=== PATIENT | male | born 1985 | race Caucasian/White ===

== ENCOUNTER 2017-08-08 12:42 | Emergency (ER) | payer BC ==
[2017-08-08 12:52] VITALS: TEMP 98.6
[2017-08-08 14:13] LABS: BASO # 0.1 K/uL (0.0-0.2); BASO % 0.8 % (0.0-2.0); EOS # 0.1 K/uL (0.0-0.7); EOS % 1.3 % (0.0-4.0); LYMPH # 1.9 K/uL (1.0-4.3); LYMPH % 19.6 % (20.0-40.0); MEAN CELL VOLUME 81.5 fL (80.0-94.0); MEAN CORPUSCULAR HEMOGLOBIN 28.9 pg (27.0-31.0); MEAN CORPUSCULAR HGB CONC 35.4 g/dL (33.0-37.0); MEAN PLATELET VOLUME 7.9 fL (7.2-11.7); MONO # 0.6 K/uL (0.0-0.8); MONO % 6.4 % (0.0-10.0); NEUT # 7.1 K/uL (1.8-7.0); NEUT % 71.9 % (50.0-75.0); NRBC % 0.2 % (0.0-2.0); RBC 5.56 Mil/uL (4.40-5.90); RED CELL DISTRIBUTION WIDTH 12.6 % (11.5-14.5); WHITE BLOOD COUNT 9.9 K/uL (4.8-10.8)
[2017-08-08 14:17] LABS: ALBUMIN 4.5 g/dL (3.5-5.0); BLOOD UREA NITROGEN 17 mg/dL (9-20); CALCIUM 9.3 mg/dl (8.6-10.4); GFR AFRICAN-AMERICAN > 60; GFR NON-AFRICAN AMERICAN > 60
[2017-08-08 14:18] LABS: ALB/GLOB RATIO 1.3 (1.0-2.1); ALT/SGPT 29 U/L (21-72); AST/SGOT 24 U/L (17-59)
--- NOTE | 2017-08-08 14:40 | RAD ---
PROCEDURE: CHEST RADIOGRAPH, 1 VIEW HISTORY: chest pain COMPARISON: None available. FINDINGS: LUNGS: Clear. PLEURA: No pneumothorax or pleural fluid seen. CARDIOVASCULAR: Normal. OSSEOUS STRUCTURES: No significant abnormalities. VISUALIZED UPPER ABDOMEN: Normal. OTHER FINDINGS: None. IMPRESSION: No active disease.
[2017-08-08 14:53] VITALS: BP 116/83; PULSE 71; RESP 18; O2SAT 98
--- NOTE | 2017-08-08 16:09 | C.PDOC ---
History Of Present Illness 31 year old male, with PMHx of gastritis, presents to ED for evaluation of sharp substernal chest pain and epigastric abdominal pain since this morning. Denies shortness of breath, cough, n/v/d, or fever. Pt had recent chest CT report which showed no acute pathology. Chief Complaint (Nursing): Chest Pain History Per: Patient History/Exam Limitations: no limitations Onset/Duration Of Symptoms: Hrs Current Symptoms Are (Timing): Still Present Quality: Sharp Associated Symptoms: denies: Nausea, Dyspnea, Diaphoresis, Syncope Modifying Factors: None Exacerbating Factors: None Alleviating Factors: None Past Medical History Reviewed: Historical Data, Nursing Documentation, Vital Signs Vital Signs: Last Vital Signs Temp 98.6 F 08/08/17 12:49 Pulse 71 08/08/17 14:52 Resp 18 08/08/17 14:52 BP 116/83 08/08/17 14:52 Pulse Ox 98 08/08/17 16:13 - Medical History PMH: HTN Family History: States: Unknown Family Hx - Social History Hx Alcohol Use: No Hx Substance Use: No - Immunization History Hx Tetanus Toxoid Vaccination: No Hx Influenza Vaccination: No Hx Pneumococcal Vaccination: No Review Of Systems Except As Marked, All Systems Reviewed And Found Negative. Constitutional: Negative for: Fever, Chills Cardiovascular: Positive for: Chest Pain. Negative for: Palpitations, Light Headedness Respiratory: Negative for: Cough, Shortness of Breath Gastrointestinal: Positive for: Abdominal Pain. Negative for: Nausea, Vomiting , Diarrhea, Constipation Musculoskeletal: Negative for: Back Pain Physical Exam - Physical Exam Appears: Non-toxic, No Acute Distress Skin: Normal Color, Warm, Dry Head: Atraumatic, Normacephalic Eye(s): bilateral: Normal Inspection Oral Mucosa: Moist Cardiovascular: Rhythm Regular, No Murmur Respiratory: Normal Breath Sounds, No Rales, No Rhonchi, No Wheezing Gastrointestinal/Abdominal: Soft, No Tenderness, No Guarding, No Rebound Extremity: Normal ROM Neurological/Psych: Oriented x3, Normal Speech ED Course And Treatment - Laboratory Results Result Diagrams: 08/08/17 13:56 08/08/17 13:56 ECG: Interpreted By Me, Viewed By Me ECG Rhythm: Sinus Rhythm ECG Interpretation: No Acute Changes Interpretation Of ECG: Normal axis, normal interval Rate From EC (bpm) O2 Sat by Pulse Oximetry: 98 (RA) Pulse Ox Interpretation: Normal Progress Note: Blood work, CXR, EKG was ordered and reviewed. Disposition - Disposition Referrals: Ailyn Cordero, [Non-Staff] - Disposition: HOME/ ROUTINE Disposition Time: 14:45 Condition: GOOD Additional Instructions: Thank you for letting us take care of you today. The emergency medical care you received today was directed at your acute symptoms. If you were prescribed any medication, please fill it and take as directed. It may take several days for your symptoms to resolve. Return to the Emergency Department if your symptoms worsen, do not improve, or if you have any other problems. Please contact your doctor or call one of the physicians/clinics you have been referred to that are listed on the Patient Visit Information form that is included in your discharge packet. Bring any paperwork you were given at discharge with you along with any medications you are taking to your follow up visit. Our treatment cannot replace ongoing medical care by a primary care provider (PCP) outside of the emergency department. Thank you for allowing the [facility] team to be part of your care today. Follow up with your primary doctor in 2-3 days for re-evaluation and further management. Prescriptions: Cyclobenzaprine [Cyclobenzaprine HCl] 10 mg PO Q8 PRN #20 tab PRN Reason: Muscle Spasm Esomeprazole Magnesium [Nexium 24Hr] 20 mg PO DAILY #10 capsule. Instructions: Chest Pain That Is Not Caused by the Heart (DC) Forms: [facility] (Georgian) - Clinical Impression Clinical Impression: Chest discomfort - Scribe Statement The provider has reviewed the documentation as recorded by the Marjorieibnorris Alfonso All medical record entries made by the Scribe were at my direction and personally dictated by me. I have reviewed the chart and agree that the record accurately reflects my personal performance of the history, physical exam, medical decision making, and the department course for this patient. I have also personally directed, reviewed, and agree with the discharge instructions and disposition.
--- NOTE | 2017-08-09 23:13 | CARD ---
APPROVED REPORT EKG Measurement Heart [id number] <Conclusion> Normal sinus rhythm Nonspecific T wave abnormality Abnormal ECG
== END 2017-08-08 15:20 | disposition home or self-care (01) ==
LOC: C.ER 12:42
DX: R07.89 Other chest pain (principal); I10 Essential (primary) hypertension

== ENCOUNTER 2017-08-18 07:32 | Day surgery (SDC) | payer BC ==
[2017-08-17 14:10] VITALS: BMI 25.0
[2017-08-18 07:54] VITALS: O2SAT 100
[2017-08-18] MEDS ORDERED: Ketamine HCL 100 mg/ml INJ ONE (08:44)
[2017-08-18] MEDS ORDERED: Lactated Ringer's 1,000 ML IV ONE (09:00)
[2017-08-18] MEDS ORDERED: Propofol 10 mg/ml Inj (20 ML) ONE (09:01)
[2017-08-18] MEDS ORDERED: Lactated Ringer's 500 ML IV SCH (09:15)
[2017-08-18 09:47] VITALS: TEMP 98.5
[2017-08-18 10:11] VITALS: BP 123/89; PULSE 90; RESP 12
== END 2017-08-18 10:45 | disposition home or self-care (01) ==
LOC: C.ENDO 07:32
PROVIDERS: ATTEND Internal Medicine Gastroenterology
DX: K29.40 Chronic atrophic gastritis without bleeding (principal); K62.5 Hemorrhage of anus and rectum
CPT/HCPCS: 43239; 88305; 88313; 88342; J2704; J7120

== ENCOUNTER 2017-08-30 06:27 | Day surgery (SDC) | payer BC ==
[2017-08-17 14:10] VITALS: BMI 25.0
[2017-08-30] MEDS ORDERED: Propofol 10 mg/ml Inj (20 ML) ONE ×3 (07:48→08:03)
--- NOTE | 2017-08-30 07:52 | CP.SDSHP ---
Same Day Surgery H & P - History Proposed Procedure: rectal eus/emr Pre-Op Diagnosis: rectal carcinoid - Allergies Allergies: Allergies No Known Allergies Allergy (Verified 08/17/17 14:10) - Physical Exam General Appearance: nl Vital Signs: Vital Signs 08/30/17 08/30/17 06:45 07:49 Temperature 98. F 98. F Pulse Rate 65 65 Respiratory 19 19 Rate Blood Pressure 120/81 120/81 O2 Sat by Pulse 100 100 Oximetry Mental Status: Alert & Oriented x3 Neuro: WNL Heart: WNL Lungs: WNL GI: WNL - {Optional Preform as Required} Abdomen: WNL - Impression Impression: rectal carcinoid Pt. 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
[2017-08-30] MEDS ORDERED: Lidocaine Hydrochloride 5 ML INJ ONE (08:14)
[2017-08-30 08:44] VITALS: TEMP 98.2
[2017-08-30 09:14] VITALS: O2SAT 100
[2017-08-30 09:49] VITALS: BP 123/82; PULSE 95; RESP 13
== END 2017-08-30 09:45 | disposition home or self-care (01) ==
LOC: C.ENDO 06:27
PROVIDERS: ATTEND Internal Medicine
DX: K62.89 Other specified diseases of anus and rectum (principal); K51.20 Ulcerative (chronic) proctitis without complications
CPT/HCPCS: 45380; 45391; 88305; 88342; J2704

== ENCOUNTER 2017-09-05 22:49 | Inpatient (IN) | payer BC ==
[2017-09-05 22:50] VITALS: BMI 25.0
--- NOTE | 2017-09-05 23:46 | C.PDOC ---
History Of Present Illness 32 year old male presents to the Ed c/o rectal bleeding since 16:00 today. Patient reports that he had 4-5 episodes, patient on 08/30 had done a rectal biopsy and US. Prior to that patient had a colonoscopy done which showed polyps. Patient denies fever, chill, nausea, vomit, weakness, numbness. Time Seen by Provider: 09/05/17 23:46 Chief Complaint (Nursing): GI Problem History Per: Patient History/Exam Limitations: no limitations Onset/Duration Of Symptoms: Days Current Symptoms Are (Timing): Still Present Number Of Bleeding Episodes: Multiple: (4-5) Amount of Blood Loss: Medium Severity: Moderate Pain Scale Rating Of: 4 Quality Of Discomfort: "Pain" Associated Symptoms: Rectal Bleeding Modifying Factors: None Recent travel outside of the [place]: No Additional History Per: Patient Past Medical History Reviewed: Historical Data, Nursing Documentation, Vital Signs Vital Signs: Last Vital Signs Temp 98.8 F 09/05/17 23:08 Pulse 67 09/05/17 23:08 Resp 18 09/05/17 23:08 BP 125/84 09/05/17 23:08 Pulse Ox 100 09/06/17 00:44 - Medical History PMH: HTN Denies: Asthma, Bronchitis, Colonic Polyps, COPD, Fractures, Chronic Kidney Disease, Sleep Apnea, TIA Surgical History: Endoscopy Family History: States: Unknown Family Hx - Social History Hx Alcohol Use: No Hx Substance Use: No - Immunization History Hx Tetanus Toxoid Vaccination: No Hx Influenza Vaccination: No Hx Pneumococcal Vaccination: No Review Of Systems Constitutional: Negative for: Fever, Chills Eyes: Negative for: Redness ENT: Negative for: Throat Pain Cardiovascular: Negative for: Chest Pain Respiratory: Negative for: Shortness of Breath Gastrointestinal: Positive for: Rectal Pain. Negative for: Nausea, Vomiting Genitourinary: Negative for: Dysuria Musculoskeletal: Negative for: Back Pain Skin: Negative for: Rash Neurological: Negative for: Weakness, Numbness Psych: Negative for: Anxiety Physical Exam - Physical Exam Appears: Non-toxic, No Acute Distress Skin: Warm, Dry Head: Normacephalic Eye(s): bilateral: Normal Inspection Oral Mucosa: Moist Neck: Supple Chest: Symmetrical Cardiovascular: Rhythm Regular Respiratory: No Rales, No Rhonchi, No Wheezing Gastrointestinal/Abdominal: Soft, No Tenderness, No Guarding, No Rebound Rectal: No Hemorrhoids, No Mass, Other (blood in the vault. no fisures) Back: Normal Inspection Extremity: No Tenderness, No Swelling Extremity: Bilateral: Atraumatic, Normal Color And Temperature, Normal ROM Neurological/Psych: Oriented x3, Normal Speech Gait: Steady ED Course And Treatment - Laboratory Results Result Diagrams: 09/06/17 00:18 09/06/17 00:18 O2 Sat by Pulse Oximetry: 100 (ON RA) Pulse Ox Interpretation: Normal Progress Note: Plan: - Labs. - protonix IV. - IV fluids. - UA Disposition Discussed With Dr.: Richard Alfonso Counseled Patient/Family Regarding: Studies Performed, Diagnosis - Disposition Referrals: Jose R Alfonso MD [Primary Care Provider] - Disposition: HOSPITALIZED Disposition Time: 23:46 Condition: FAIR Forms: [facility] (Cook Islander) - POA Present On Arrival: None - Clinical Impression Clinical Impression: Rectal bleeding - Scribe Statement The provider has reviewed the documentation as recorded by the Scribe Marco Spring All medical record entries made by the Scribe were at my direction and personally dictated by me. I have reviewed the chart and agree that the record accurately reflects my personal performance of the history, physical exam, medical decision making, and the department course for this patient. I have also personally directed, reviewed, and agree with the discharge instructions and disposition. Decision To Admit - Pt Status Changed To: Hospital Disposition Of: Inpatient - Admit Certification Admit to Inpatient:: After my assessment, the patient will require hospitalization for at least two midnights. This is because of the severity of symptoms shown, intensity of services needed, and/or the medical risk in this patient being treated as an outpatient. - InPatient: Physician Admission Certification: I certify that this patient requires 2 or more midnights of care for the following reason:: After my assessment, the patient will require hospitalization for at least two midnights. This is because of the severity of symptoms shown, intensity of services needed, and/or the medical risk in this patient being treated as an outpatient. - . Bed Request Type: Regular Admitting Physician: Richard Alfonso Patient Diagnosis: Rectal bleeding
[2017-09-06] MEDS ORDERED: Sodium Chloride 0.9% 1,000 ML IV ONE (00:06)
[2017-09-06] MEDS ORDERED: Pantoprazole 80 MG in Sodium Chloride 0.9% 100 ML IV STA (00:06)
[2017-09-06] MEDS ORDERED: Sodium Chloride 0.9% 1,000 ML ONE (00:11)
[2017-09-06 00:29] LABS: PROTHROMBIN TIME 10.6 SECONDS (9.7-12.2)
[2017-09-06 00:40] LABS: BASO # 0.1 K/uL (0.0-0.2); BASO % 0.7 % (0.0-2.0); EOS # 0.2 K/uL (0.0-0.7); EOS % 1.7 % (0.0-4.0); HEMOGLOBIN 14.9 g/dL (12.0-18.0); LYMPH # 3.1 K/uL (1.0-4.3); LYMPH % 27.4 % (20.0-40.0); MEAN CELL VOLUME 82.1 fL (80.0-94.0); MEAN CORPUSCULAR HEMOGLOBIN 28.3 pg (27.0-31.0); MEAN CORPUSCULAR HGB CONC 34.5 g/dL (33.0-37.0); MEAN PLATELET VOLUME 8.4 fL (7.2-11.7); MONO # 1.1 K/uL (0.0-0.8); MONO % 9.8 % (0.0-10.0); NEUT # 6.8 K/uL (1.8-7.0); NEUT % 60.4 % (50.0-75.0); NRBC % 0.3 % (0.0-2.0); RBC 5.25 Mil/uL (4.40-5.90); RED CELL DISTRIBUTION WIDTH 12.8 % (11.5-14.5); WHITE BLOOD COUNT 11.3 K/uL (4.8-10.8)
[2017-09-06 01:01] LABS: ALB/GLOB RATIO 1.5 (1.0-2.1); ALBUMIN 4.8 g/dL (3.5-5.0); ALT/SGPT 38 U/L (21-72); AST/SGOT 25 U/L (17-59); BLOOD UREA NITROGEN 14 mg/dL (9-20); CALCIUM 9.3 mg/dl (8.6-10.4); GFR AFRICAN-AMERICAN > 60; GFR NON-AFRICAN AMERICAN > 60; LIPASE 145 U/L (23-300)
[2017-09-06 01:21] LABS: URINE BILIRUBIN NEGATIVE (NEGATIVE); URINE BLOOD 1+ (NEGATIVE); URINE CLARITY Clear (Clear); URINE COLOR Straw (YELLOW); URINE GLUCOSE (UA) NORMAL (Normal); URINE LEUKOCYTE ESTERASE NEG Leu/uL (Negative); URINE PROTEIN NEGATIVE (NEGATIVE); URINE UROBILINOGEN NORMAL mg/dL (0.2-1.0)
--- NOTE | 2017-09-06 02:33 | CP.PCM.HP ---
History of Present Illness - History of Present Illness History of Present Illness: HPI: Patient is a 32 year old male with a history of hypertension (resolved), who presents to the ED with complaints of bloody stools. The patient states he started having bloody bowel movements at 4pm on Wednesday. He has had approximately 7 bloody stools, 1 episode in the ED. He admits to slight burning with BM. The patient has been followed by Dr. Glasgow as outpatient. He recently had an colonoscopy and endoscopy on 08/18/17 for complaints of abdominal pain and indigestion. 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 He then returned to Dr. Glasgow, had an ultrasound, and removed the rectal carcinoid on 08/30/17. The patient exercises 2-3 per week. He exercised/weight lifted Wednesday and Wednesday, and believes this may have caused the rectal bleeding.The patient otherwise has no complaints and denies chest pain, abdominal pain, dyspnea, nausea, vomiting, fevers, headaches, dizziness, flushing, changes in vision. PMD: Dr. Jose R Alfonso GI: Dr. Glasgow PMHx: Rectal carcinoid (removed 08/30/17); HTN (resolved) SurgHx: Colonoscopy/endoscopy 08/18/17; Rectal carcinoid resection 08/30/17 FamHx: Mother-HTN; otherwise denies SocHx: denies tobacco, alcohol, and drug use; lives with , Divia, in . 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 absent: Abdominal Pain, Constipation, Hematemesis, Nausea, Vomiting - Genitourinary Genitourinary: absent: Dysuria, Hematuria - Integumentary Integumentary: absent: Rash, Swelling - Neurological Neurological: absent: Dizziness, Headaches, Weakness - Endocrine Endocrine: absent: Excessive Sweating, Fatigue, Flushing, Palpitations - Hematologic/Lymphatic Hematologic: absent: Easy Bruising Past Patient History - Infectious Disease Hx of Infectious Diseases: None - Past Medical History & Family History Past Medical History?: Yes - Past Social History Smoking Status: Never Smoked - CARDIAC Hx Hypertension: Yes - PULMONARY Hx Asthma: No Hx Bronchitis: No Hx Chronic Obstructive Pulmonary Disease (COPD): No Hx Sleep Apnea: No - NEUROLOGICAL Hx Transient Ischemic Attacks (TIA): No - HEENT Hx HEENT Problems: No - RENAL Hx Chronic Kidney Disease: No - ENDOCRINE/METABOLIC Hx Endocrine Disorders: No - HEMATOLOGICAL/ONCOLOGICAL Hx Blood Disorders: No Hx Blood Transfusions: No - INTEGUMENTARY Hx Dermatological Problems: No - MUSCULOSKELETAL/RHEUMATOLOGICAL Hx Fractures: No - GASTROINTESTINAL Hx Gastrointestinal Disorders: Yes Hx Gastroesophageal Reflux: Yes - GENITOURINARY/GYNECOLOGICAL Hx Genitourinary Disorders: No - PSYCHIATRIC Hx Substance Use: No - SURGICAL HISTORY Other/Comment: colonoscopy - ANESTHESIA Hx Anesthesia: Yes Hx Anesthesia Reactions: No Hx Malignant Hyperthermia: No Meds Allergies/Adverse Reactions: Allergies Allergy/AdvReac Type Severity Reaction Status Date / Time No Known Allergies Allergy Verified 08/17/17 14:10 Physical Exam - Constitutional Appears: No Acute Distress - Head Exam Head Exam: ATRAUMATIC, NORMAL INSPECTION - Eye Exam Eye Exam: EOMI, Normal appearance, PERRL - ENT Exam ENT Exam: Mucous Membranes Moist Additional comments: Geographic tongue - Neck Exam Neck exam: Positive for: Full Rom, Normal Inspection. Negative for: Lymphadenopathy - Respiratory Exam Respiratory Exam: Clear to Auscultation Bilateral, NORMAL BREATHING PATTERN. absent: Rales, Rhonchi, Wheezes, Respiratory Distress - Cardiovascular Exam Cardiovascular Exam: REGULAR RHYTHM, +S1, +S2 Additional comments: left 2ICS murmur? - GI/Abdominal Exam GI & Abdominal Exam: Normal Bowel Sounds, Soft. absent: Tenderness - Rectal Exam Additional comments: blood noted externally; external hemorrhoid present; no fissures noted. - Extremities Exam Extremities exam: Positive for: full ROM, normal capillary refill, normal inspection, pedal pulses present. Negative for: pedal edema, tenderness - Neurological Exam Neurological exam: Alert, Oriented x3 - Psychiatric Exam Psychiatric exam: Normal Affect, Normal Mood - Skin Skin Exam: Dry, Intact, Normal Color, Warm Results - Vital Signs Recent Vital Signs: Last Vital Signs Temp 98 F 09/06/17 01:49 Pulse 78 09/06/17 01:49 Resp 18 09/06/17 01:49 BP 136/72 09/06/17 01:49 Pulse Ox 98 09/06/17 01:49 - Labs Result Diagrams: 09/06/17 00:18 09/06/17 00:18 Labs: Laboratory Results - last 24 hr 09/06/17 09/06/17 09/06/17 00:18 00:18 00:18 WBC 11.3 H RBC 5.25 Hgb 14.9 Hct 43.1 MCV 82.1 MCH 28.3 MCHC 34.5 RDW 12.8 Plt Count 327 MPV 8.4 Neut % (Auto) 60.4 Lymph % (Auto) 27.4 Weld % (Auto) 9.8 Eos % (Auto) 1.7 Baso % (Auto) 0.7 Neut # (Auto) 6.8 Lymph # (Auto) 3.1 Weld # (Auto) 1.1 H Eos # (Auto) 0.2 Baso # (Auto) 0.1 PT 10.6 INR 1.0 APTT 44 H Sodium Potassium Chloride Carbon Dioxide Anion Gap BUN Creatinine Est GFR ( Amer) Est GFR (Non-Af Amer) Random Glucose Calcium Total Bilirubin AST ALT Alkaline Phosphatase Total Protein Albumin Globulin Albumin/Globulin Ratio Lipase Urine Color Urine Clarity Urine pH Ur Specific [place] Urine Protein Urine Glucose (UA) Urine Ketones Urine Blood Urine Nitrate Urine Bilirubin Urine Urobilinogen Ur Leukocyte Esterase Urine WBC (Auto) Urine RBC (Auto) Stool Occult Blood Positive H Blood Type Antibody Screen 09/06/17 09/06/17 09/06/17 00:18 00:18 01:16 WBC RBC Hgb Hct MCV MCH MCHC RDW Plt Count MPV Neut % (Auto) Lymph % (Auto) Weld % (Auto) Eos % (Auto) Baso % (Auto) Neut # (Auto) Lymph # (Auto) Weld # (Auto) Eos # (Auto) Baso # (Auto) PT INR APTT Sodium 143 Potassium 4.3 Chloride 102 Carbon Dioxide 30 Anion Gap 16 BUN 14 Creatinine 0.8 Est GFR ( Amer) > 60 Est GFR (Non-Af Amer) > 60 Random Glucose 103 Calcium 9.3 Total Bilirubin 1.2 AST 25 ALT 38 Alkaline Phosphatase 66 Total Protein 7.9 Albumin 4.8 Globulin 3.1 Albumin/Globulin Ratio 1.5 Lipase 145 Urine Color Straw Urine Clarity Clear Urine pH 7.0 Ur Specific [place] 1.006 Urine Protein Negative Urine Glucose (UA) Normal Urine Ketones Negative Urine Blood 1+ H Urine Nitrate Negative Urine Bilirubin Negative Urine Urobilinogen Normal Ur Leukocyte Esterase Neg Urine WBC (Auto) < 1 Urine RBC (Auto) 1 Stool Occult Blood Blood Type A POSITIVE Antibody Screen Negative Assessment & Plan - Assessment and Plan (Free Text) Plan: Rectal Bleeding * Likely secondary to strenuous exercise s/p rectal carcinoid resection on . * H/H stable--> continue to monitor * Follow up H/H at 8am and 2pm. * Type and cross * Vitals Q4 * GI, Dr. Glasgow, consulted- help appreciated * Protonix 40mg PO BID Left 2nd ICS Murmur? * With hx of neuroendocrine tumor, echo is indicated * Echocardiogram: f/u Hx Rectal Carcinoid * Colonoscopy/endoscopy on 08/18/[address] Glasgow * Endoscopy: mild chronic inactive gastritis; no intestinal metaplasia identified * Colonoscopy: well differentiated neuroendocrine tumor (carcinoid) * Lower EUS on 08/30/17 --> resected tumor Prophlyactic measure * DVT: SCDs; no chemical anticoagulation due to rectal bleeding * GI: Protonix 40mg PO BID
[2017-09-06 07:49] LABS: HEMOGLOBIN 14.2 g/dL (12.0-18.0)
--- NOTE | 2017-09-06 08:07 | CP.PCM.CON ---
<SpikeheathsydneyDarryl - Last Filed: 09/06/17 12:21> History of Present Illness - History of Present Illness History of Present Illness: GI Fellow PGY4 consult note Blayne Alfonso is a pleasant 42yo [place]ian male with history of HTN presenting with rectal bleeding. Rectal bleeding was bright red, painless and started bleeding yesterday ~4pm after lifting weights. He notes 7-8 BMs first bright red , then mixed blood and stool. Bleeding is improving. Last BM was 4am. He denies abdominal pain, fever, constipation or significant straining prior to bleeding episode, hematemesis. Importantly, patient had recent rectal procedures including Colonoscopy 08/18/17 which found 9mm polyp in rectum removed with hot snare. Biopsy showing carcinoid tumor. He also had EGD 08/18/17 with gastritis. 08/30 rectal U/S performed with deep resection of tumor. Patient has not had significant bleeding since procedure until now. PMHx - HTN not on medication PSHx - As above FmHx - Denies history of colon cancer SocHx - Denies alcohol or substance use. 12pt ROS negative except for as above. Review of Systems - Constitutional Constitutional: As Per HPI. absent: Fever, Weakness - Cardiovascular Cardiovascular: As Per HPI. absent: Chest Pain, Lightheadedness, Rapid Heart Rate - Respiratory Respiratory: absent: Cough, Dyspnea, Hemoptysis - Gastrointestinal Gastrointestinal: Change in Bowel Habits, Change in Stool Character, Hematochezia. absent: Abdominal Pain, Hematemesis - Musculoskeletal Musculoskeletal: absent: Arthralgias, Back Pain, Joint Swelling - Integumentary Integumentary: absent: Lesions, Rash - Psychiatric Psychiatric: absent: Confusion, Hallucinations, Memory Loss Past Patient History - Infectious Disease Hx of Infectious Diseases: None - Past Medical History & Family History Past Medical History?: Yes - Past Social History Smoking Status: Never Smoked Alcohol: None Drugs: Denies - CARDIAC Hx Hypertension: Yes - PULMONARY Hx Asthma: No Hx Bronchitis: No Hx Chronic Obstructive Pulmonary Disease (COPD): No Hx Sleep Apnea: No - NEUROLOGICAL Hx Transient Ischemic Attacks (TIA): No - HEENT Hx HEENT Problems: No - RENAL Hx Chronic Kidney Disease: No - ENDOCRINE/METABOLIC Hx Endocrine Disorders: No - HEMATOLOGICAL/ONCOLOGICAL Hx Blood Disorders: No Hx Blood Transfusions: No - INTEGUMENTARY Hx Dermatological Problems: No - MUSCULOSKELETAL/RHEUMATOLOGICAL Hx Fractures: No - GASTROINTESTINAL Hx Gastrointestinal Disorders: Yes Hx Gastroesophageal Reflux: Yes - GENITOURINARY/GYNECOLOGICAL Hx Genitourinary Disorders: No - PSYCHIATRIC Hx Substance Use: No - SURGICAL HISTORY Other/Comment: colonoscopy - ANESTHESIA Hx Anesthesia: Yes Hx Anesthesia Reactions: No Hx Malignant Hyperthermia: No Meds Allergies/Adverse Reactions: Allergies Allergy/AdvReac Type Severity Reaction Status Date / Time No Known Allergies Allergy Verified 08/17/17 14:10 - Medications Medications: Current Medications Pantoprazole Sodium (Protonix Ec Tab) 40 mg PO BID [facility] Pneumococcal Polyvalent Vaccine (Pneumovax 23 Vaccine) 0.5 ml IM .ONCE ONE Stop: 09/08/17 10:31 Physical Exam - Constitutional Appears: Well, Non-toxic, No Acute Distress - Head Exam Head Exam: ATRAUMATIC, NORMAL INSPECTION, NORMOCEPHALIC - Eye Exam Eye Exam: EOMI, Normal appearance. absent: Scleral icterus - ENT Exam ENT Exam: Mucous Membranes Moist, Normal Exam, Normal External Ear Exam - Respiratory Exam Respiratory Exam: NORMAL BREATHING PATTERN. absent: Accessory Muscle Use, Wheezes, Respiratory Distress - Cardiovascular Exam Cardiovascular Exam: +S1, +S2. absent: Tachycardia - GI/Abdominal Exam GI & Abdominal Exam: Soft. absent: Distended, Firm, Organomegaly, Tenderness - Rectal Exam Rectal Exam: absent: Hemorrhoids Additional comments: No bright red blood. Small amount of blood mixed with stool. - Extremities Exam Extremities exam: Positive for: full ROM, normal capillary refill. Negative for : pedal edema - Back Exam Back exam: NORMAL INSPECTION - Neurological Exam Neurological exam: Alert, CN II-XII Intact, Oriented x3 - Psychiatric Exam Psychiatric exam: Normal Affect, Normal Mood - Skin Skin Exam: Dry, Intact, Normal Color, Warm Results - Vital Signs Recent Vital Signs: Last Vital Signs Temp 98.1 F 09/06/17 02:55 Pulse 76 09/06/17 02:55 Resp 20 09/06/17 02:55 BP 116/72 09/06/17 02:55 Pulse Ox 98 09/06/17 02:55 - Labs Result Diagrams: 09/06/17 07:45 09/06/17 00:18 Labs: Laboratory Results - last 24 hr 09/06/17 09/06/17 09/06/17 00:18 00:18 00:18 WBC 11.3 H RBC 5.25 Hgb 14.9 Hct 43.1 MCV 82.1 MCH 28.3 MCHC 34.5 RDW 12.8 Plt Count 327 MPV 8.4 Neut % (Auto) 60.4 Lymph % (Auto) 27.4 Bulloch % (Auto) 9.8 Eos % (Auto) 1.7 Baso % (Auto) 0.7 Neut # (Auto) 6.8 Lymph # (Auto) 3.1 Bulloch # (Auto) 1.1 H Eos # (Auto) 0.2 Baso # (Auto) 0.1 PT 10.6 INR 1.0 APTT 44 H Sodium Potassium Chloride Carbon Dioxide Anion Gap BUN Creatinine Est GFR ( Amer) Est GFR (Non-Af Amer) Random Glucose Calcium Total Bilirubin AST ALT Alkaline Phosphatase Total Protein Albumin Globulin Albumin/Globulin Ratio Lipase Urine Color Urine Clarity Urine pH Ur Specific Jonancy Urine Protein Urine Glucose (UA) Urine Ketones Urine Blood Urine Nitrate Urine Bilirubin Urine Urobilinogen Ur Leukocyte Esterase Urine WBC (Auto) Urine RBC (Auto) Stool Occult Blood Positive H Blood Type Antibody Screen 09/06/17 09/06/17 09/06/17 00:18 00:18 01:16 WBC RBC Hgb Hct MCV MCH MCHC RDW Plt Count MPV Neut % (Auto) Lymph % (Auto) Bulloch % (Auto) Eos % (Auto) Baso % (Auto) Neut # (Auto) Lymph # (Auto) Bulloch # (Auto) Eos # (Auto) Baso # (Auto) PT INR APTT Sodium 143 Potassium 4.3 Chloride 102 Carbon Dioxide 30 Anion Gap 16 BUN 14 Creatinine 0.8 Est GFR ( Amer) > 60 Est GFR (Non-Af Amer) > 60 Random Glucose 103 Calcium 9.3 Total Bilirubin 1.2 AST 25 ALT 38 Alkaline Phosphatase 66 Total Protein 7.9 Albumin 4.8 Globulin 3.1 Albumin/Globulin Ratio 1.5 Lipase 145 Urine Color Straw Urine Clarity Clear Urine pH 7.0 Ur Specific Jonancy 1.006 Urine Protein Negative Urine Glucose (UA) Normal Urine Ketones Negative Urine Blood 1+ H Urine Nitrate Negative Urine Bilirubin Negative Urine Urobilinogen Normal Ur Leukocyte Esterase Neg Urine WBC (Auto) < 1 Urine RBC (Auto) 1 Stool Occult Blood Blood Type A POSITIVE Antibody Screen Negative 09/06/17 07:45 WBC RBC Hgb 14.2 Hct 40.9 MCV MCH MCHC RDW Plt Count MPV Neut % (Auto) Lymph % (Auto) Bulloch % (Auto) Eos % (Auto) Baso % (Auto) Neut # (Auto) Lymph # (Auto) Bulloch # (Auto) Eos # (Auto) Baso # (Auto) PT INR APTT Sodium Potassium Chloride Carbon Dioxide Anion Gap BUN Creatinine Est GFR ( Amer) Est GFR (Non-Af Amer) Random Glucose Calcium Total Bilirubin AST ALT Alkaline Phosphatase Total Protein Albumin Globulin Albumin/Globulin Ratio Lipase Urine Color Urine Clarity Urine pH Ur Specific Jonancy Urine Protein Urine Glucose (UA) Urine Ketones Urine Blood Urine Nitrate Urine Bilirubin Urine Urobilinogen Ur Leukocyte Esterase Urine WBC (Auto) Urine RBC (Auto) Stool Occult Blood Blood Type Antibody Screen Assessment & Plan - Assessment and Plan (Free Text) Assessment: 32M with recent rectal carcinoid tumor resection 08/30 presenting with acute rectal bleeding. 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 Hx colonoscopy 08/18/17 with 9mm carcinoid tumor s/p hot snare. 08/30 rectal u/s with resection. #Rectal carcinoid tumor - s/p resection #Gastritis Plan: -Continue supportive care. -Monitor h/h, hemodynamically stable at this time -Prepare for flex sigmoidoscopy today to assess site of bleeding for ulceration at polypectomy site, less likely tears and possible need for intervention. Doubt perforation. -Tap water enema -NPO -consent signed an in chart. -Continue PPI for gastritis -Avoid NSAID, antiplatelet, anticoagulation -Will continue to follow and make further recs after endoscopy <Osito Glasgow Y - Last Filed: 09/06/17 12:35> Meds - Medications Medications: Current Medications Pantoprazole Sodium (Protonix Ec Tab) 40 mg PO BID [facility] Last Admin: 09/06/17 09:27 Dose: Not Given Pneumococcal Polyvalent Vaccine (Pneumovax 23 Vaccine) 0.5 ml IM .ONCE ONE Stop: 09/08/17 10:31 Results - Vital Signs Recent Vital Signs: Last Vital Signs Temp 98.1 F 09/06/17 10:56 Pulse 78 09/06/17 11:26 Resp 14 09/06/17 11:26 BP 117/78 09/06/17 11:26 Pulse Ox 100 09/06/17 11:26 - Labs Result Diagrams: 09/06/17 07:45 09/06/17 00:18 Labs: Laboratory Results - last 24 hr 09/06/17 09/06/17 09/06/17 00:18 00:18 00:18 WBC 11.3 H RBC 5.25 Hgb 14.9 Hct 43.1 MCV 82.1 MCH 28.3 MCHC 34.5 RDW 12.8 Plt Count 327 MPV 8.4 Neut % (Auto) 60.4 Lymph % (Auto) 27.4 Bulloch % (Auto) 9.8 Eos % (Auto) 1.7 Baso % (Auto) 0.7 Neut # (Auto) 6.8 Lymph # (Auto) 3.1 Bulloch # (Auto) 1.1 H Eos # (Auto) 0.2 Baso # (Auto) 0.1 PT 10.6 INR 1.0 APTT 44 H Sodium Potassium Chloride Carbon Dioxide Anion Gap BUN Creatinine Est GFR ( Amer) Est GFR (Non-Af Amer) Random Glucose Calcium Total Bilirubin AST ALT Alkaline Phosphatase Total Protein Albumin Globulin Albumin/Globulin Ratio Lipase Urine Color Urine Clarity Urine pH Ur Specific Jonancy Urine Protein Urine Glucose (UA) Urine Ketones Urine Blood Urine Nitrate Urine Bilirubin Urine Urobilinogen Ur Leukocyte Esterase Urine WBC (Auto) Urine RBC (Auto) Stool Occult Blood Positive H Blood Type Antibody Screen 09/06/17 09/06/17 09/06/17 00:18 00:18 01:16 WBC RBC Hgb Hct MCV MCH MCHC RDW Plt Count MPV Neut % (Auto) Lymph % (Auto) Bulloch % (Auto) Eos % (Auto) Baso % (Auto) Neut # (Auto) Lymph # (Auto) Bulloch # (Auto) Eos # (Auto) Baso # (Auto) PT INR APTT Sodium 143 Potassium 4.3 Chloride 102 Carbon Dioxide 30 Anion Gap 16 BUN 14 Creatinine 0.8 Est GFR ( Amer) > 60 Est GFR (Non-Af Amer) > 60 Random Glucose 103 Calcium 9.3 Total Bilirubin 1.2 AST 25 ALT 38 Alkaline Phosphatase 66 Total Protein 7.9 Albumin 4.8 Globulin 3.1 Albumin/Globulin Ratio 1.5 Lipase 145 Urine Color Straw Urine Clarity Clear Urine pH 7.0 Ur Specific Jonancy 1.006 Urine Protein Negative Urine Glucose (UA) Normal Urine Ketones Negative Urine Blood 1+ H Urine Nitrate Negative Urine Bilirubin Negative Urine Urobilinogen Normal Ur Leukocyte Esterase Neg Urine WBC (Auto) < 1 Urine RBC (Auto) 1 Stool Occult Blood Blood Type A POSITIVE Antibody Screen Negative 09/06/17 09/06/17 07:12 07:45 WBC RBC Hgb 14.2 Hct 40.9 MCV MCH MCHC RDW Plt Count MPV Neut % (Auto) Lymph % (Auto) Bulloch % (Auto) Eos % (Auto) Baso % (Auto) Neut # (Auto) Lymph # (Auto) Bulloch # (Auto) Eos # (Auto) Baso # (Auto) PT INR APTT Sodium Potassium Chloride Carbon Dioxide Anion Gap BUN Creatinine Est GFR ( Amer) Est GFR (Non-Af Amer) Random Glucose Calcium Total Bilirubin AST ALT Alkaline Phosphatase Total Protein Albumin Globulin Albumin/Globulin Ratio Lipase Urine Color Urine Clarity Urine pH Ur Specific Jonancy Urine Protein Urine Glucose (UA) Urine Ketones Urine Blood Urine Nitrate Urine Bilirubin Urine Urobilinogen Ur Leukocyte Esterase Urine WBC (Auto) Urine RBC (Auto) Stool Occult Blood Blood Type A POSITIVE Antibody Screen Negative Attending/Attestation - Attestation I have personally seen and examined this patient.: Yes I have fully participated in the care of the patient.: Yes I have reviewed all pertinent clinical information: Yes Notes (Text): 09/06/17 12:29 I have seen and examined patient with GI fellow. Agree with above documentation with the following additions. In brief, this is a 32 year old male with history of rectal carcinoid tumor found incidentally on colonoscopy last month performed for evaluation of rectal bleeding. He underwent EUS with EMR of lesion on August 30 with clear margins from excised surgical specimen. He presents to hospital with complaint of sudden onset rectal bleeding which started yesterday afternoon after going to the gym. He reports multiple episodes of bright red rectal bleeding (up to 7-8) with last episode at 4 am today. He denies associated abdominal pain, nausea, vomiting, fever/chills, or weight loss. Review of vitals from today are normal. Rectal carcinoid tumor, s/p EMR Rectal bleeding, sudden onset - suspect post intervention bleeding / ulcer at excision site - NPO - Continue to monitor H/H - Plan for urgent sigmoidoscopy today to evaluate suspected bleeding site from recent excision of rectal carcinoid - Tap water enema prior to procedure - Further recommendations pending endoscopic examination
[2017-09-06] MEDS: Pantoprazole 40 mg EC Tab PO SCH ×2 (09:27→17:59)
[2017-09-06] MEDS ORDERED: Lactated Ringer's 1,000 ML IV ONE (09:53)
[2017-09-06] MEDS ORDERED: Propofol 10 mg/ml Inj (20 ML) ONE ×2 (10:01→10:38)
[2017-09-06 14:03] VITALS: RESP 18
--- NOTE | 2017-09-06 14:50 | CP.PCM.PN ---
Subjective - Date & Time of Evaluation Date of Evaluation: 09/06/17 Time of Evaluation: 14:49 - Subjective Subjective: Seen and examined by me,no complain Discussed with at bedside\ S /p flexible sigmoidoscopy Objective - Vital Signs/Intake and Output Vital Signs (last 24 hours): Temp Pulse Resp BP Pulse Ox 98.5 F 72 18 121/78 99 09/06/17 11:45 09/06/17 11:45 09/06/17 11:45 09/06/17 11:45 09/06/17 11:45 - Medications Medications: Current Medications Pantoprazole Sodium (Protonix Ec Tab) 40 mg PO BID [facility] Last Admin: 09/06/17 09:27 Dose: Not Given Pneumococcal Polyvalent Vaccine (Pneumovax 23 Vaccine) 0.5 ml IM .ONCE ONE Stop: 09/08/17 10:31 - Labs Labs: 09/06/17 07:45 09/06/17 00:18 PT 10.6 SECONDS (9.7-12.2) 09/06/17 00:18 INR 1.0 09/06/17 00:18 APTT 44 SECONDS (21-34) H 09/06/17 00:18 Assessment and Plan - Assessment and Plan (Free Text) Assessment: This is a 32 years old male with history of Rectal carcinoid (removed 08/30/17) tumor removed during colonoscopy who follows Dr Glasgow as an out patient came to ER for rectal bleeding. s/p flexible sigmoidoscopy and injection of epinephrine of the rectal ulcer today. D/W Dr Glasgow. His tumor was resected completely. No further inpatient work up recommended .observe him overnight on liquid diet and discharge him tomorrow He has history of HTN?. His BP is stable Plan: Observe tonight liquid diet monitor cbc follow Dr Glasgow as an out patient after discharge plan discussed with the patient and his
[2017-09-06 16:21] VITALS: O2SAT 98
[2017-09-06 17:22] LABS: HEMOGLOBIN 13.9 g/dL (12.0-18.0)
[2017-09-07 07:14] LABS: BASO # 0.1 K/uL (0.0-0.2); BASO % 0.6 % (0.0-2.0); EOS # 0.1 K/uL (0.0-0.7); EOS % 1.5 % (0.0-4.0); HEMOGLOBIN 14.4 g/dL (12.0-18.0); LYMPH # 2.2 K/uL (1.0-4.3); LYMPH % 23.4 % (20.0-40.0); MEAN CELL VOLUME 81.1 fL (80.0-94.0); MEAN CORPUSCULAR HEMOGLOBIN 28.5 pg (27.0-31.0); MEAN CORPUSCULAR HGB CONC 35.2 g/dL (33.0-37.0); MEAN PLATELET VOLUME 8.1 fL (7.2-11.7); MONO # 0.7 K/uL (0.0-0.8); MONO % 7.2 % (0.0-10.0); NEUT # 6.2 K/uL (1.8-7.0); NEUT % 67.3 % (50.0-75.0); NRBC % 0.4 % (0.0-2.0); RBC 5.03 Mil/uL (4.40-5.90); WHITE BLOOD COUNT 9.2 K/uL (4.8-10.8)
[2017-09-07 07:42] LABS: ALB/GLOB RATIO 1.6 (1.0-2.1); ALBUMIN 4.5 g/dL (3.5-5.0); ALT/SGPT 27 U/L (21-72); AST/SGOT 67 U/L (17-59); BLOOD UREA NITROGEN 12 mg/dL (9-20); CALCIUM 9.4 mg/dl (8.6-10.4); GFR AFRICAN-AMERICAN > 60; GFR NON-AFRICAN AMERICAN > 60
--- NOTE | 2017-09-07 08:46 | CP.PCM.PN ---
<Darryl Vasquez - Last Filed: 09/07/17 08:53> Subjective - Date & Time of Evaluation Date of Evaluation: 09/07/17 Time of Evaluation: 08:43 - Subjective Subjective: GI Fellow PGY4, progress note. Patient seen and examined. No acute overnight events. Admits soft, brown bowel movement. Denies fever, abdominal pain, rectal bleeding. 12pt ROS negative except for HPI. Objective - Vital Signs/Intake and Output Vital Signs (last 24 hours): Temp Pulse Resp BP Pulse Ox 98.1 F 85 18 111/69 98 09/06/17 23:20 09/06/17 23:20 09/06/17 23:20 09/06/17 23:20 09/06/17 23:20 Intake and Output: 09/07/17 09/07/17 06:59 18:59 Intake Total 320 Output Total 880 Balance -560 - Medications Medications: Current Medications Pantoprazole Sodium (Protonix Ec Tab) 40 mg PO BID [facility] Last Admin: 09/06/17 17:59 Dose: 40 mg Pneumococcal Polyvalent Vaccine (Pneumovax 23 Vaccine) 0.5 ml IM .ONCE ONE Stop: 09/08/17 10:31 - Labs Labs: 09/07/17 06:57 09/07/17 06:57 PT 10.6 SECONDS (9.7-12.2) 09/06/17 00:18 INR 1.0 09/06/17 00:18 APTT 44 SECONDS (21-34) H 09/06/17 00:18 - Constitutional Appears: Well, Non-toxic, No Acute Distress - Head Exam Head Exam: ATRAUMATIC, NORMAL INSPECTION, NORMOCEPHALIC - Eye Exam Eye Exam: EOMI, Normal appearance - ENT Exam ENT Exam: Mucous Membranes Moist, Normal Exam - Neck Exam Neck Exam: Full ROM, Normal Inspection - Respiratory Exam Respiratory Exam: NORMAL BREATHING PATTERN. absent: Respiratory Distress, Stridor - Cardiovascular Exam Cardiovascular Exam: REGULAR RHYTHM. absent: Tachycardia - GI/Abdominal Exam GI & Abdominal Exam: Soft. absent: Distended, Tenderness, Organomegaly - Extremities Exam Extremities Exam: Full ROM, Normal Capillary Refill, Normal Inspection - Neurological Exam Neurological Exam: Alert, Awake, Oriented x3 - Psychiatric Exam Psychiatric exam: Normal Affect, Normal Mood - Skin Skin Exam: Dry, Intact, Normal Color Assessment and Plan - Assessment and Plan (Free Text) Assessment: 32M with recent rectal carcinoid tumor resection 08/30 presenting with acute rectal bleeding. #Rectal bleeding, sudden onset - Urgent flex sig. showed ulceration and oozing visible vessel at sight of EMR. Hx colonoscopy 08/18/17 with 9mm carcinoid tumor s/p hot snare. 08/30 rectal u/s with resection. #Rectal carcinoid tumor - s/p resection #Gastritis Plan: -Continue supportive care. -Hemodynamically stable at this time. H/H stable overnight. -Okay to start regular diet. Avoid dense meats. -Colace daily x1 week to avoid constipation -Avoid NSAID, antiplatelet, anticoagulation -Okay to discharge home. Follow up in clinic as discussed with Dr. Glasgow. -Discussed to call office or go to ER if he develops fever, significant abdominal pain, or further rectal bleeding. <Osito Glasgow - Last Filed: 09/07/17 09:04> Objective - Vital Signs/Intake and Output Vital Signs (last 24 hours): Temp Pulse Resp BP Pulse Ox 98.1 F 85 18 111/69 98 09/06/17 23:20 09/06/17 23:20 09/06/17 23:20 09/06/17 23:20 09/06/17 23:20 Intake and Output: 09/07/17 09/07/17 06:59 18:59 Intake Total 320 Output Total 880 Balance -560 - Medications Medications: Current Medications Docusate Sodium (Colace) 100 mg PO DAILY [facility] Pantoprazole Sodium (Protonix Ec Tab) 40 mg PO BID [facility] Last Admin: 09/06/17 17:59 Dose: 40 mg Pneumococcal Polyvalent Vaccine (Pneumovax 23 Vaccine) 0.5 ml IM .ONCE ONE Stop: 09/08/17 10:31 - Labs Labs: 09/07/17 06:57 09/07/17 06:57 PT 10.6 SECONDS (9.7-12.2) 09/06/17 00:18 INR 1.0 09/06/17 00:18 APTT 44 SECONDS (21-34) H 09/06/17 00:18 Attending/Attestation - Attestation I have personally seen and examined this patient.: Yes I have fully participated in the care of the patient.: Yes I have reviewed all pertinent clinical information, including history, physical exam and plan: Yes Notes (Text): 09/07/17 09:01 I have seen and examined patient with GI fellow. No acute events overnight, he had one brown colored formed bowel movement yesterday evening, no recurrent rectal bleeding noted. He denies abdominal pain, nausea, vomiting, fever/ chills. Tolerating PO liquids without difficulty. Rectal carcinoid s/p EMR of lesion Rectal bleeding s/p sigmoidoscopy yesterday showing ulcer with visible vessel at resection site s/p endoscopic injection and thermal therapy - Advance diet as tolerated - H/H stable, continue to monitor - Suggest use of once daily colace to ensure patient is not constipated. Increase PO water and fiber intake. - No further planned intervention, from GI standpoint ok to discharge home with additional outpatient follow up. Will sign off case, please reconsult as necessary, thank you.
--- NOTE | 2017-09-07 10:25 | CP.PCM.DIS ---
Provider - Provider Date of Admission: 09/06/17 01:17 Attending physician: Junior Araiza MD Primary care physician: Jose R Alfonso MD Consults: Dr Glasgow Time Spent in preparation of Discharge (in minutes): 35 Diagnosis - Discharge Diagnosis (1) Rectal bleeding Status: Acute Comment: PT had flexible sigmodoscopy for rectal bleeding. Bleeding resolved during hospitalization. Pt to follow with Dr Glasgow Hospital Course - Lab Results Lab Results: Most Recent Lab Values WBC 9.2 K/uL (4.8-10.8) 09/07/17 06:57 RBC 5.03 Mil/uL (4.40-5.90) 09/07/17 06:57 Hgb 14.4 g/dL (12.0-18.0) 09/07/17 06:57 Hct 40.8 % (35.0-51.0) 09/07/17 06:57 MCV 81.1 fL (80.0-94.0) 09/07/17 06:57 MCH 28.5 pg (27.0-31.0) 09/07/17 06:57 MCHC 35.2 g/dL (33.0-37.0) 09/07/17 06:57 RDW 13.0 % (11.5-14.5) 09/07/17 06:57 Plt Count 359 K/uL (130-400) 09/07/17 06:57 MPV 8.1 fL (7.2-11.7) 09/07/17 06:57 Neut % (Auto) 67.3 % (50.0-75.0) 09/07/17 06:57 Lymph % (Auto) 23.4 % (20.0-40.0) 09/07/17 06:57 Tripp % (Auto) 7.2 % (0.0-10.0) 09/07/17 06:57 Eos % (Auto) 1.5 % (0.0-4.0) 09/07/17 06:57 Baso % (Auto) 0.6 % (0.0-2.0) 09/07/17 06:57 Neut # (Auto) 6.2 K/uL (1.8-7.0) 09/07/17 06:57 Lymph # (Auto) 2.2 K/uL (1.0-4.3) 09/07/17 06:57 Tripp # (Auto) 0.7 K/uL (0.0-0.8) 09/07/17 06:57 Eos # (Auto) 0.1 K/uL (0.0-0.7) 09/07/17 06:57 Baso # (Auto) 0.1 K/uL (0.0-0.2) 09/07/17 06:57 PT 10.6 SECONDS (9.7-12.2) 09/06/17 00:18 INR 1.0 09/06/17 00:18 APTT 44 SECONDS (21-34) H 09/06/17 00:18 Sodium 139 mmol/L (132-148) 09/07/17 06:57 Potassium 4.2 mmol/L (3.6-5.2) 09/07/17 06:57 Chloride 101 mmol/L (98-107) 09/07/17 06:57 Carbon Dioxide 28 mmol/L (22-30) 09/07/17 06:57 Anion Gap 15 (10-20) 09/07/17 06:57 BUN 12 mg/dL (9-20) 09/07/17 06:57 Creatinine 0.9 mg/dL (0.8-1.5) 09/07/17 06:57 Est GFR ( Amer) > 60 09/07/17 06:57 Est GFR (Non-Af Amer) > 60 09/07/17 06:57 Random Glucose 99 mg/dL (75-110) 09/07/17 06:57 Calcium 9.4 mg/dl (8.6-10.4) 09/07/17 06:57 Total Bilirubin 2.3 mg/dL (0.2-1.3) H 09/07/17 06:57 AST 67 U/L (17-59) H D 09/07/17 06:57 ALT 27 U/L (21-72) 09/07/17 06:57 Alkaline Phosphatase 68 U/L (38-126) 09/07/17 06:57 Total Protein 7.4 g/dL (6.3-8.3) 09/07/17 06:57 Albumin 4.5 g/dL (3.5-5.0) 09/07/17 06:57 Globulin 2.9 gm/dL (2.2-3.9) 09/07/17 06:57 Albumin/Globulin Ratio 1.6 (1.0-2.1) 09/07/17 06:57 Lipase 145 U/L (23-300) 09/06/17 00:18 Urine Color Straw (YELLOW) 09/06/17 01:16 Urine Clarity Clear (Clear) 09/06/17 01:16 Urine pH 7.0 (5.0-8.0) 09/06/17 01:16 Ur Specific [place] 1.006 (1.003-1.030) 09/06/17 01:16 Urine Protein Negative mg/dL (NEGATIVE) 09/06/17 01:16 Urine Glucose (UA) Normal mg/dL (Normal) 09/06/17 01:16 Urine Ketones Negative mg/dL (NEGATIVE) 09/06/17 01:16 Urine Blood 1+ (NEGATIVE) H 09/06/17 01:16 Urine Nitrate Negative (NEGATIVE) 09/06/17 01:16 Urine Bilirubin Negative (NEGATIVE) 09/06/17 01:16 Urine Urobilinogen Normal mg/dL (0.2-1.0) 09/06/17 01:16 Ur Leukocyte Esterase Neg J Carlos/uL (Negative) 09/06/17 01:16 Urine WBC (Auto) < 1 /hpf (0-5) 09/06/17 01:16 Urine RBC (Auto) 1 /hpf (0-3) 09/06/17 01:16 Stool Occult Blood Positive (NEGATIVE) H 09/06/17 00:18 Blood Type A POSITIVE 09/06/17 07:12 Antibody Screen Negative 09/06/17 07:12 - Hospital Course Hospital Course: On Admission: Patient is a 32 year old male with a history of hypertension (resolved), who presents to the ED with complaints of bloody stools. The patient states he started having bloody bowel movements at 4pm on Wednesday. He has had approximately 7 bloody stools, 1 episode in the ED. He admits to slight burning with BM. The patient has been followed by Dr. Glasgow as outpatient. He recently had an colonoscopy and endoscopy on 08/18/17 for complaints of abdominal pain and indigestion. 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 He then returned to Dr. Glasgow, had an ultrasound, and removed the rectal carcinoid on 08/30/17. The patient exercises 2-3 per week. He exercised/weight lifted Wednesday and Wednesday, and believes this may have caused the rectal bleeding.The patient otherwise has no complaints and denies chest pain, abdominal pain, dyspnea, nausea, vomiting, fevers, headaches, dizziness, flushing, changes in vision. During Hospitalization: Pt was seen by GI doctor Pee. per Gi report "Pt had flexible sigmoidoscopy which showed ulceration and oozing visible vessel at sight of EMR. During flexible sigmoidscopy, a 18 mm ulcer was found in the rectum with a visible vessel at prior site. Oozing was present. Area was successfully injected with 8ml of a 1:[id number] solution of epinephrine for hemostasis. Coagulation for hemostasis using heater probe was successful." For more detail please see complete sigmoidoscopy report. Pt had blood work during hospitalization to monitor for hemodynamic stability. Pt did not have any significant drops in hemoglobin. Pt was cleared to go home by GI with follow up. On discharge: Pt is stable to discharge home as per Dr Araiza. Pt needs to follow with Primary Doctor Kaden and GI Dr Glasgow. Pt is being discharge with new prescription colace 100 mg by mouth daily for 14 days. Per GI: Okay to start regular diet. Avoid dense meats. Avoid NSAID, antiplatelet, anticoagulation. Pt to return to ED if symptoms reoccur or worsen. This was explain who understands and agrees with the plan. This is only a summary for patient's hospitalization. For more detail, please see complete record Discharge Exam - Head Exam Head Exam: ATRAUMATIC, NORMAL INSPECTION, NORMOCEPHALIC - Eye Exam Eye Exam: EOMI, Normal appearance - ENT Exam ENT Exam: Mucous Membranes Moist - Neck Exam Neck exam: Full Rom, Normal Inspection - Respiratory Exam Respiratory Exam: Clear to PA & Lateral, NORMAL BREATHING PATTERN - Cardiovascular Exam Cardiovascular Exam: REGULAR RHYTHM, +S1, +S2 - GI/Abdominal Exam GI & Abdominal Exam: Normal Bowel Sounds, Soft. absent: Distended, Guarding, Tenderness - Extremities Exam Extremities exam: full ROM, normal inspection - Neurological Exam Neurological exam: Alert, Normal Gait - Skin Skin Exam: Intact, Normal Color Discharge Plan - Discharge Medications Prescriptions: Docusate [Colace] 100 mg PO DAILY #14 cap - Follow Up Plan Condition: FAIR Disposition: HOME/ ROUTINE Instructions: Flexible Sigmoidoscopy, Gastrointestinal Bleeding (DC), Bloody Stools, Adult (DC), Docusate Additional Instructions: Pt is stable to discharge home as per Dr Araiza. Pt needs to follow with Primary Doctor Kaden and GI Dr Glasgow. Pt is being discharge with new prescription colace 100 mg by mouth daily for 14 days. Per GI: Okay to start regular diet. Avoid dense meats. Avoid NSAID, antiplatelet, anticoagulation. Pt to return to ED if symptoms reoccur or worsen. This was explain who understands and agrees with the plan. Referrals: Osito Glasgow MD [Staff Provider] - Jose R Alfonso MD [Primary Care Provider] -
[2017-09-07] MEDS ORDERED: Midazolam 2 MG/2 ML VIAL ONE (11:50)
[2017-09-07 12:37] VITALS: BP 111/77; PULSE 70; TEMP 98.2
[2017-09-07] MEDS: Pantoprazole 40 mg EC Tab PO SCH (12:52)
[2017-09-08] MEDS ORDERED: Pneumococcal 23-Valent Vaccine IM ONE (10:30)
--- NOTE | 2017-09-08 18:26 | CARD ---
APPROVED REPORT EXAM: Two-dimensional and M-mode echocardiogram with Doppler and color Doppler. Other Information Quality : GoodRhythm : INDICATION Chest Pain Murmur RISK FACTORS Hypertension 2D DIMENSIONS IVSd0.8 (0.7-1.1cm)LVDd3.9 (3.9-5.9cm) PWd0.9 (0.7-1.1cm)LVDs2.6 (2.5-4.0cm) FS (%) 32.9 %LVEF (%)70.0 (>50%) M-Mode DIMENSIONS RVDd1.82 (2.1-3.2cm)Left Atrium (MM)2.61 (2.5-4.0cm) IVSd0.73 (0.7-1.1cm)Aortic Root2.68 (2.2-3.7cm) LVDd4.48 (4.0-5.6cm)Aortic Cusp Exc.1.83 (1.5-2.0cm) PWd0.65 (0.7-1.1cm)FS (%) 46 % LVDs2.42 (2.0-3.8cm)LVEF (%)77 (>50%) Mitral Valve MV E Jikptyma77.3cm/sMV A Kdxnytjk05.3cm/sE/A ratio1.2 TDI E/Lateral E'0.0E/Medial E'0.0 LEFT VENTRICLE The left ventricle is normal size. There is normal left ventricular wall thickness. Left ventricle systolic function is normal. The Ejection Fraction is >70%. There is normal LV segmental wall motion. The left ventricular diastolic function is normal. RIGHT VENTRICLE The right ventricle is normal size. There is normal right ventricular wall thickness. The right ventricular systolic function is normal. ATRIA The left atrium size is normal. The right atrium size is normal. The interatrial septum is intact with no evidence for an atrial septal defect. AORTIC VALVE The aortic valve is normal in structure. No aortic regurgitation is present. There is no aortic valvular stenosis. There is no aortic valvular vegetation. MITRAL VALVE The mitral valve is normal in structure. There is no evidence of mitral valve prolapse. There is no mitral valve stenosis. Mitral regurgitation is mild. TRICUSPID VALVE The tricuspid valve is normal in structure. There is mild tricuspid regurgitation. PULMONIC VALVE The pulmonic valve is not well visualized. There is mild to moderate pulmonic valvular regurgitation. GREAT VESSELS The aortic root is normal in size. PERICARDIAL EFFUSION There is no significant pericardial effusion. <Conclusion> Left ventricle systolic function is normal. The Ejection Fraction is >70%. No aortic regurgitation is present. Mitral regurgitation is mild. There is mild tricuspid regurgitation. There is mild to moderate pulmonic valvular regurgitation.
== END 2017-09-07 13:39 | disposition home or self-care (01) | DRG 395 ==
LOC: SUPCPDRO 22:49 → C.ER 22:49 → C.9E 09-06 01:17 → C.6T 09-06 02:22
PROVIDERS: ADMIT Internal Medicine; ATTEND Internal Medicine
PROC: 0W3P8ZZ Control Bleeding in Gastrointestinal Tract, Via Natural or Artificial Opening Endoscopic (ICD-10-PCS; principal; 2017-09-06 10:29)
DX: K62.6 Ulcer of anus and rectum (principal); I10 Essential (primary) hypertension

== ENCOUNTER 2017-10-31 10:23 | Emergency (ER) | payer BC ==
[2017-10-31 10:23] VITALS: BMI 25.0
[2017-10-31 10:39] VITALS: BP 123/79; PULSE 96; RESP 19; TEMP 98.3; O2SAT 97
--- NOTE | 2017-10-31 11:14 | C.PDOC ---
History Of Present Illness 32-year-old male presents to the ED complaining of frequent belching, especially after eating, ongoing for 1 month. Patient also reports abdominal bloating after meals. At times patient notes his throat hurts when he eats. States he already went to see PMD and had normal blood work. Additionally patient reports constipation on occasion, but he had a normal bowel movement today. Otherwise he denies any abdominal pain, vomiting, diarrhea, bloody stools , fever, or chills. Time Seen by Provider: 10/31/17 10:53 Chief Complaint (Nursing): Abdominal Pain History Per: Patient History/Exam Limitations: no limitations Onset/Duration Of Symptoms: Days Current Symptoms Are (Timing): Still Present Reports Recently: Treated By A Physician Past Medical History Reviewed: Historical Data, Nursing Documentation, Vital Signs Vital Signs: Last Vital Signs Temp 98.3 F 10/31/17 10:33 Pulse 96 H 10/31/17 10:33 Resp 19 10/31/17 10:33 BP 123/79 10/31/17 10:33 Pulse Ox 97 10/31/17 11:26 - Medical History PMH: HTN Denies: Asthma, Bronchitis, Colonic Polyps, COPD, Fractures, Chronic Kidney Disease, Sleep Apnea, TIA Surgical History: Endoscopy - [facility] Procedures CONTROL BLEEDING IN GASTROINTESTINAL TRACT, ENDO (09/06/17) Family History: States: Unknown Family Hx - Social History Hx Alcohol Use: No Hx Substance Use: No - Immunization History Hx Tetanus Toxoid Vaccination: No Hx Influenza Vaccination: No Hx Pneumococcal Vaccination: No Review Of Systems Except As Marked, All Systems Reviewed And Found Negative. Constitutional: Negative for: Fever, Chills Cardiovascular: Negative for: Chest Pain Respiratory: Negative for: Shortness of Breath Gastrointestinal: Positive for: Constipation, Other (Belching, abdominal bloating). Negative for: Vomiting, Abdominal Pain, Diarrhea, Hematochezia Genitourinary: Negative for: Dysuria, Frequency, Incontinence Neurological: Negative for: Weakness Physical Exam - Physical Exam Appears: Well, Non-toxic, No Acute Distress Skin: Warm, Dry, No Rash Head: Atraumatic, Normacephalic Eye(s): bilateral: Normal Inspection Oral Mucosa: Moist Teeth: Normal Dentition Throat: Normal, No Erythema, No Exudate Neck: Normal ROM Chest: Symmetrical Cardiovascular: Rhythm Regular, No Murmur Respiratory: Normal Breath Sounds, No Rales, No Rhonchi, No Wheezing Gastrointestinal/Abdominal: Bowel Sounds (active), Soft, No Tenderness, No Distention, No Guarding Extremity: Bilateral: Atraumatic, Normal Color And Temperature, Normal ROM Neurological/Psych: Oriented x3, Normal Speech Gait: Steady ED Course And Treatment O2 Sat by Pulse Oximetry: 97 (room air) Pulse Ox Interpretation: Normal Medical Decision Making Medical Decision Making: Impression: 32 year old with complaints of belching, bloating, constipation Plan: Patient remains afebrile, AAOx3, tolerating PO, in no acute distress while in the ER. Reassured patient that exam today was normal and there is no need for further ER intervention. I recommended patient begin PPI medications, given prescriptions to go home. Patient counseled regarding dietary recommendations and advised to follow up with GI specialist for further evaluation. Disposition Counseled Patient/Family Regarding: Diagnosis, Need For Followup - Disposition Referrals: Jeet Driscoll MD [Medical Doctor] - Osito Glasgow MD [Staff Provider] - Disposition: HOME/ ROUTINE Disposition Time: 11:12 Condition: GOOD Additional Instructions: Follow up with your primary medical doctor and GI for further evaluation. Take medications as prescribed. Return to the emergency department at any time if symptoms persist or worsen. Prescriptions: Calcium Carbonate/Simethicone [Maalox Advanced Tab Chew] 1 ctb PO Q6 #20 ctb Omeprazole 20 mg PO DAILY #30 capsule. 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 - Scribe Statement The provider has reviewed the documentation as recorded by the Scribe (Mai Cardozo) All medical record entries made by the Scribe were at my direction and personally dictated by me. I have reviewed the chart and agree that the record accurately reflects my personal performance of the history, physical exam, medical decision making, and the department course for this patient. I have also personally directed, reviewed, and agree with the discharge instructions and disposition.
== END 2017-10-31 11:30 | disposition home or self-care (01) ==
LOC: C.ER 10:23
DX: R10.13 Epigastric pain (principal); R14.0 Abdominal distension (gaseous); R14.1 Gas pain